=== PATIENT | male | born 1940 | race Caucasian/White ===

== ENCOUNTER 2017-04-24 08:11 | Day surgery (SDC) | payer OTHER ==
--- NOTE | 2017-04-19 13:42 | HP ---
DATE OF ADMISSION: 05/08/2017 DATE OF DICTATION: 04/02/2017 HISTORY: A 76-year-old man admitted to the hospital for open repair of a reducible, symptomatic left inguinal hernia. No underlying GI, , or respiratory complaints to suggest predisposition to hernia formation. PAST MEDICAL HISTORY: Significant for hypertension and prostate cancer. No known history of heart disease, diabetes, respiratory, renal, or hepatic insufficiency. PAST SURGICAL HISTORY: Significant for open appendectomy in 1966. ALLERGIES: LISINOPRIL. CURRENT MEDICATIONS: Include amlodipine and losartan. Patient does also use baby aspirin and Zyrtec. SOCIAL HISTORY: Negative tobacco. Positive alcohol, glass 1 daily. FAMILY HISTORY: Essentially nil. Both parents but with no significant medical history. REVIEW OF SYSTEMS: Otherwise nil. PHYSICAL EXAMINATION: The patient has an obvious [id number]-size, reducible left inguinal hernia. The right groin is intact with no evidence of right inguinal hernia. The testes are unremarkable. The abdomen is soft and nontender. Tattoos noted consistent with prior radiation therapy for prostate cancer. Surgical scar noted in the lower abdomen consistent with prior appendectomy. IMPRESSION: Left inguinal hernia. PLAN: Open left inguinal hernia repair with mesh. Patient not felt to be a good candidate for peritoneoscopic hernia surgery given his history of pelvic radiation and prior pelvic surgery. Indications, alternatives, possible complications reviewed including issues related to the placement of a synthetic mesh. Patient will be seen preoperatively by Dr. Coffey. Please refer to those notes for those medical details. Christiana MONTELONGO/[id number] cc: Robbi Coffey MD
[2017-04-23 14:43] VITALS: BMI 25.1
[2017-04-24] MEDS ORDERED: ceFAZolin SODIUM 1 GM VIAL ONE (08:53)
[2017-04-24] MEDS ORDERED: TAMSULOSIN HCL 0.4 MG CAP.ER.24H (FP) ONE (09:37)
[2017-04-24] MEDS ORDERED: PROPOFOL 20 ML ONE (10:21)
[2017-04-24] MEDS ORDERED: MIDAZOLAM HCL 2 MG/2 ML SINGLE DOSE VIAL ONE (10:22)
[2017-04-24] MEDS ORDERED: ROCURONIUM BROMIDE 50 MG/5 ML VIAL ONE (10:22)
[2017-04-24] MEDS ORDERED: BUPIVACAINE HCL/PF 0.5% (5MG/ML) 10 ML VIAL ONE (11:32)
[2017-04-24] MEDS ORDERED: ceFAZolin SODIUM 1 GM VIAL IVPB ONE (11:42)
[2017-04-24] MEDS ORDERED: BUPIVACAINE HCL/PF (5 MG/ML) 30 ML VIAL IJ ONE (12:09)
[2017-04-24] MEDS ORDERED: DESFLURANE GAS 240 ML BOTTLE IH ONE (12:12)
[2017-04-24] MEDS ORDERED: ONDANSETRON 4 MG/2 ML VIAL IVPUSH PRN (13:48)
[2017-04-24] MEDS ORDERED: oxyCODONE HCL 5 MG TABLET PO PRN ×4 (13:48→15:38)
[2017-04-24] MEDS ORDERED: LACTATED RINGERS SOLUTION 1,000 ML IV SCH (14:00)
[2017-04-24 14:42] VITALS: TEMP 98.1
[2017-04-24 15:33] VITALS: BP 109/63; PULSE 56
--- NOTE | 2017-04-25 11:04 | OP ---
DATE OF OPERATION: 04/24/2017 PREOPERATIVE DIAGNOSIS: Left inguinal hernia. POSTOPERATIVE DIAGNOSIS: Direct left inguinal hernia. PROCEDURE: Open repair of direct left inguinal hernia with mesh, left intermediate wound closure (8 cm). SURGEON: Hector Olvera MD HYDROLOGIST: Kevin Mcfadden MD ANESTHESIA: Americo Guillory MD (general) HISTORY: A 76-year-old man who presents for repair of a left inguinal hernia. Patient with a prior lower abdominal surgery and radiation therapy for prostate cancer, not felt to be an ideal candidate for peritoneoscopic hernia surgery. For that reason, patient presents for traditional open surgery. Indications, alternatives, and possible complications were reviewed. Consent obtained. DESCRIPTION OF PROCEDURE: With the patient in the supine position and after general anesthesia, the left groin was prepped and draped in sterile fashion using chlorhexidine. An 8-cm left groin incision was made between the left pubic tubercle and left anterior iliac spine. The incision was deepened into the subcutaneous space. All identified vessels in the subcutaneous space were clamped, divided, and ligated. The external oblique aponeurosis was opened in the direction of its fibers, through the external ring. The ilioinguinal nerve was identified and spared. The undersurface of the split external oblique aponeurosis was swept clean to the level of the pubic tubercle. At the pubic tubercle, a Kinza drain was placed around the cord structures. Exploration of the cord failed to reveal evidence of an indirect component. There was an obvious direct hernia noted. The transversalis fascia was then opened throughout its length. The preperitoneal tissues were reduced. A Davol plug was placed in the preperitoneal space and fanned out under the overlying musculature. It was tacked in place circumferentially with 2-0 Prolene sutures. The attenuated transversalis fascia was imbricated in 2 layers over the Davol plug. This was accomplished with a continuous 2-0 Prolene suture, beginning at the pubic tubercle, progressing superiorly, and reconstructing the internal ring and then returning to the pubic tubercle. An overlay mesh was then fashioned about the entire inguinal floor and tacked in place circumferentially with 2-0 Prolene sutures. The superior aspect of the mesh, which was keyholed, was wrapped around the cord and tacked in place, buttressing the internal ring. The cord and inguinal nerve were then returned to their anatomic positions. The overlying external oblique aponeurosis was closed using a continuous 3-0 Vicryl suture. After adequate hemostasis, the wound was closed in layers. Main fascia was approximated with interrupted 3-0 chromic suture. Subcuticular layer was approximated with interrupted 4-0 Biosyn suture. Skin was approximated using 4- 0 Biosyn in the subcuticular space in continuous fashion. Mastisol and Steri-Strips were applied. Dressings applied. Procedure terminated. Needle, sponge, and instrument count correct. ESTIMATED BLOOD LOSS: Minimal. SPECIMEN: None. DRAIN: None. The patient tolerated the procedure. The procedure was terminated. Christiana MONTELONGO/[id number] cc: Robbi Coffey MD MTDD
== END 2017-04-24 15:15 | disposition home or self-care (01) ==
LOC: JASU-SURG 08:11
PROVIDERS: ATTEND Surgery
PROC: 0YU60JZ Supplement Left Inguinal Region with Synthetic Substitute, Open Approach (ICD-10-PCS; principal; 2017-04-24 10:00)
DX: K40.90 Unilateral inguinal hernia, without obstruction or gangrene, not specified as recurrent (principal); Z85.46 Personal history of malignant neoplasm of prostate; Z92.3 Personal history of irradiation
CPT/HCPCS: 94760